=== PATIENT | female | born 1995 ===

== ENCOUNTER 2022-10-13 06:00 | Inpatient (IN) | payer OTHER ==
[~2022-10-13] VITALS: Ht 152.4 cm; Wt 1.8 kg
[2022-10-13] MEDS ORDERED: PRENATAL TABLE1 EAC1 PO (06:41)
[2022-10-13] MEDS ORDERED: IRON325 MG PO (06:42)
== END 2022-10-17 13:49 | disposition home or self-care (01) | DRG 786 ==
LOC: LDR 06:00 → OB/GYN 06:00
PROVIDERS: ADMIT Obstetrics & Gynecology; ATTEND Obstetrics & Gynecology
PROC: 4A1HXCZ Monitoring of Products of Conception, Cardiac Rate, External Approach (ICD-10-PCS; 2022-10-13)
PROC: 10D00Z1 Extraction of Products of Conception, Low, Open Approach (ICD-10-PCS; principal; 2022-10-13 08:00)
DX: O32.1XX1 Maternal care for breech presentation, fetus 1 (principal); O60.14X2 Preterm labor third trimester with preterm delivery third trimester, fetus 2; O30.043 Twin pregnancy, dichorionic/diamniotic, third trimester; Z3A.33 33 weeks gestation of pregnancy; Z37.2 Twins, both liveborn; Z20.822 Contact with and (suspected) exposure to COVID-19